=== PATIENT | female | born 1990 | race Caucasian/White ===

== ENCOUNTER 2020-03-01 21:42 | Emergency (ER) | payer OTHER ==
[~2020-03-01] VITALS: Ht 154.9 cm; Wt 102.1 kg
[2020-03-01] MEDS ORDERED: TOPAMAX100 MG PO ×2 (22:01→23:24)
[2020-03-01] MEDS ORDERED: XANAX1 MG PO (22:01)
[2020-03-01] MEDS ORDERED: METHADONE HCL 110 M1 PO (22:03)
[2020-03-01] MEDS ORDERED: LYRICA150 MG PO ×2 (22:03→23:24)
[2020-03-01 22:10] LABS: ABSOLUTE BASOPHILS 0.1 thou/uL (0.0-0.2); ABSOLUTE EOSINOPHILS 0.1 thou/uL (0.0-0.7); ABSOLUTE LYMPHOCYTES 2.4 thou/uL (0.8-5.3); ABSOLUTE MONOCYTES 0.3 thou/uL (0.0-1.2); ABSOLUTE NEUTROPHILS 5.2 thou/uL (1.6-8.1); BASOPHILS 0.7 %; EOSINOPHILS 1.7 %; HEMATOCRIT 43.9 % (37.0-47.0); HEMOGLOBIN 15.5 gm/dL (12.0-15.0); LYMPHOCYTES 29.8 %; MCH 29.5 pg (26.0-34.0); MCHC 35.2 g/dL (28.0-37.0); MCV 83.9 fL (80.0-100.0); MONOCYTES 3.8 %; MPV 9.2 fl. (7.2-11.1); NUCLEATED RBCS 0 /100WBC; PLATELET COUNT* 227 thou/uL (150-400); RBC 5.24 mil/uL (4.20-5.00); RDW-CV 13.9 % (10.5-14.5); WBC 8.1 thou/uL (4.0-11.0)
[2020-03-01 22:19] LABS: PROTIME 10.7 Seconds (9.20-11.50)
[2020-03-01 22:26] LABS: URINE BILIRUBIN NEGATIVE (Negative); URINE BLOOD NEGATIVE (Negative); URINE CLARITY SL CLOUDY; URINE COLOR YELLOW; URINE GLUCOSE-RANDOM NEGATIVE (Negative); URINE KETONES NEGATIVE (Negative); URINE PROTEIN NEGATIVE (Negative)
[2020-03-01 22:27] LABS: URINE LEUKOCYTES-REFLEX 2+ (Negative); URINE NITRITE-REFLEX POSITIVE (Negative)
[2020-03-01 22:27] LABS: CALCIUM 8.9 mg/dL (8.5-10.1); CREATININE 1.1 mg/dL (0.6-1.3); POTASSIUM 3.5 mmol/L (3.5-5.1)
[2020-03-01 22:42] LABS: ALBUMIN 3.7 g/dL (3.4-5.0); TOTAL BILIRUBIN 1.1 mg/dL (<0.1-1.0); TOTAL PROTEIN 7.5 g/dL (6.4-8.2)
[2020-03-01 22:47] LABS: BACTERIA-REFLEX >30 Many /HPF (None Seen); SQUAMOUS >10 Many /LPF (0-3)
[2020-03-01 22:48] LABS: CASTS None Seen /LPF (None Seen); CRYSTALS None Seen /LPF (None Seen); MUCUS None Seen strn/LPF (None Seen); URINE RBC None Seen /HPF (0-2)
[2020-03-01 22:50] LABS: AMP/METHAMP Negative (Negative); BARBITURATES Negative (Negative); BENZODIAZEPINES POSITIVE (Negative); COCAINE Negative (Negative); METHADONE POSITIVE (Negative); OPIATES Negative (Negative); PCP Negative (Negative); THC POSITIVE (Negative)
[2020-03-01] MEDS ORDERED: ZOLOFT100 MG PO (23:24)
[2020-03-01] MEDS ORDERED: LYRICA100 MG PO (23:24)
[2020-03-01] MEDS ORDERED: BACTRIM DS TAB1 EACH PO (23:26)
[2020-03-02 00:04] VITALS: BP 115/81
--- NOTE | 2020-03-02 10:20 | EKG ---
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
== END 2020-03-02 00:05 | disposition home or self-care (01) ==
LOC: M.ERS 21:42
PROVIDERS: Emergency Medicine
DX: N39.0 Urinary tract infection, site not specified (principal); R63.0 Anorexia; R55 Syncope and collapse; G43.909 Migraine, unspecified, not intractable, without status migrainosus; M79.7 Fibromyalgia; F41.9 Anxiety disorder, unspecified; F32.9 Major depressive disorder, single episode, unspecified; Z88.0 Allergy status to penicillin; Z88.8 Allergy status to other drugs, medicaments and biological substances

== ENCOUNTER 2020-03-27 21:26 | Emergency (ER) | payer OTHER ==
[~2020-03-27] VITALS: Ht 157.5 cm; Wt 106.6 kg
[~2020-03-27 21:26] MED LIST: BACTRIM DS TAB1 EACH PO; LYRICA100 MG PO; LYRICA150 MG PO; METHADONE HCL 110 M1 PO; TOPAMAX100 MG PO; XANAX1 MG PO; ZOLOFT100 MG PO
[2020-03-27 21:59] LABS: URINE BILIRUBIN NEGATIVE (Negative); URINE BLOOD TRACE (Negative); URINE CLARITY CLEAR; URINE COLOR YELLOW; URINE GLUCOSE-RANDOM NEGATIVE (Negative); URINE KETONES NEGATIVE (Negative); URINE LEUKOCYTES-REFLEX NEGATIVE (Negative); URINE NITRITE-REFLEX NEGATIVE (Negative); URINE PROTEIN NEGATIVE (Negative); URINE SPECIFIC GRAVITY 1.015 (1.005-1.030); URINE UROBILINOGEN 0.2 E.U./dl (0.2-1.0)
[2020-03-27 22:07] LABS: AMP/METHAMP Negative (Negative); BARBITURATES Negative (Negative); BENZODIAZEPINES POSITIVE (Negative); COCAINE Negative (Negative); METHADONE POSITIVE (Negative); OPIATES Negative (Negative); PCP Negative (Negative); THC POSITIVE (Negative)
[2020-03-27] MEDS ORDERED: CYMBALTA60 MG PO (22:08)
[2020-03-27 22:16] LABS: ABSOLUTE EOSINOPHILS 0.4 thou/uL (0.0-0.7); ABSOLUTE LYMPHOCYTES 3.3 thou/uL (0.8-5.3); ABSOLUTE MONOCYTES 0.5 thou/uL (0.0-1.2); ABSOLUTE NEUTROPHILS 5.5 thou/uL (1.6-8.1); BASOPHILS 0.4 %; EOSINOPHILS 4.6 %; LYMPHOCYTES 33.9 %; MCH 29.5 pg (26.0-34.0); MCV 84.4 fL (80.0-100.0); MONOCYTES 4.7 %; MPV 8.7 fl. (7.2-11.1); NUCLEATED RBCS 0 /100WBC; PLATELET COUNT* 276 thou/uL (150-400); POLYS 56.4 %; RBC 4.74 mil/uL (4.20-5.00); RDW-CV 14.3 % (10.5-14.5); WBC 9.7 thou/uL (4.0-11.0)
[2020-03-27] MEDS ORDERED: SEROQUEL 25 MG25 M1 PO (22:19)
[2020-03-27 22:20] LABS: CALCIUM 8.5 mg/dL (8.5-10.1); CREATININE 0.8 mg/dL (0.6-1.3); POTASSIUM 3.8 mmol/L (3.5-5.1)
[2020-03-27] MEDS ORDERED: DIAZEPAM 10 MG10 M1 PO (22:20)
[2020-03-27] MEDS ORDERED: NEURONTIN 300M300 M2 PO (22:21)
[2020-03-27] MEDS ORDERED: AMBIEN 10 MG TA10 MG PO (22:22)
[2020-03-27] MEDS ORDERED: LYRICA150 MG PO (22:24)
[2020-03-27 22:25] LABS: ALBUMIN 3.3 g/dL (3.4-5.0); TOTAL BILIRUBIN 0.3 mg/dL (<0.1-1.0); TOTAL PROTEIN 7.7 g/dL (6.4-8.2)
[2020-03-27 22:58] LABS: ALCOHOL < 10 mg/dL (<10); SALICYLATE 3.6 mg/dL (2.8-20.0)
[2020-03-27 23:01] LABS: ACETAMINOPHEN < 2 ug/mL (10-30)
[2020-03-29 10:10] VITALS: BP 93/59
== END 2020-03-29 10:10 | disposition still patient (30) ==
LOC: M.ERS 21:26
PROVIDERS: Emergency Medicine
DX: R45.851 Suicidal ideations (principal); F41.9 Anxiety disorder, unspecified; G43.909 Migraine, unspecified, not intractable, without status migrainosus; F32.9 Major depressive disorder, single episode, unspecified; G40.909 Epilepsy, unspecified, not intractable, without status epilepticus; Z88.0 Allergy status to penicillin; Z88.8 Allergy status to other drugs, medicaments and biological substances; Z79.899 Other long term (current) drug therapy

== ENCOUNTER 2020-12-19 16:29 | Emergency (ER) | payer OTHER ==
[~2020-12-19] VITALS: Ht 157.5 cm; Wt 114.8 kg
[~2020-12-19 16:29] MED LIST changes: +AMBIEN 10 MG TA10 MG PO; +CYMBALTA60 MG PO; +DIAZEPAM 10 MG10 M1 PO; +NEURONTIN 300M300 M2 PO; +SEROQUEL 25 MG25 M1 PO
[2020-12-19 17:39] LABS: ABSOLUTE BASOPHILS 0.1 thou/uL (0.0-0.2); ABSOLUTE EOSINOPHILS 0.3 thou/uL (0.0-0.7); ABSOLUTE LYMPHOCYTES 4.7 thou/uL (0.8-5.3); ABSOLUTE MONOCYTES 0.7 thou/uL (0.0-1.2); ABSOLUTE NEUTROPHILS 5.9 thou/uL (1.6-8.1); BASOPHILS 0.5 %; EOSINOPHILS 2.6 %; HEMATOCRIT 42.4 % (37.0-47.0); HEMOGLOBIN 14.4 gm/dL (12.0-15.0); LYMPHOCYTES 40.3 %; MCH 28.3 pg (26.0-34.0); MCHC 33.9 g/dL (28.0-37.0); MCV 83.6 fL (80.0-100.0); MONOCYTES 5.9 %; MPV 8.2 fl. (7.2-11.1); NUCLEATED RBCS 0 /100WBC; PLATELET COUNT* 260 thou/uL (150-400); POLYS 50.7 %; RBC 5.07 mil/uL (4.20-5.00); RDW-CV 13.5 % (10.5-14.5); WBC 11.7 thou/uL (4.0-11.0)
[2020-12-19] MEDS ORDERED: METHADONE10 MG/1 M2 PO (17:39)
[2020-12-19 17:52] LABS: CALCIUM 9.1 mg/dL (8.5-10.1); CREATININE 0.9 mg/dL (0.6-1.3); POTASSIUM 3.7 mmol/L (3.5-5.1)
[2020-12-19 17:57] LABS: ALBUMIN 3.1 g/dL (3.4-5.0); TOTAL BILIRUBIN 0.3 mg/dL (<0.1-1.0); TOTAL PROTEIN 6.8 g/dL (6.4-8.2)
[2020-12-19] MEDS ORDERED: PROMS25 WY RECTAL (18:00)
[2020-12-19] MEDS ORDERED: PHENERGAN 25 MG25 M1 PO (18:00)
[2020-12-19] MEDS ORDERED: VENTOLIN HFA 1818 GM INH (18:00)
[2020-12-19 19:04] VITALS: BP 105/67
--- NOTE | 2020-12-20 09:43 | EKG ---
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1990 Requested By: Berenice Myers Order Number: [id number] MD: Ricky Whitfield Measurements Intervals [place] Rate: 89 P: 40 MN: 142 QRS: 43 QRSD: 94 T: 31 QT: 363 QTc: 442 Interpretive Statements Sinus rhythm Borderline T abnormalities, anterior leads Compared to ECG 03/01/2020 21:47:53 T-wave abnormality now present Electronically Signed On 12-20-2020 9:42:56 PROJECTION TECHNICIAN by Ricky Whitfield [email or web address] <ELECTRONICALLY SIGNED> By: Ricky Whitfield MD, FACC 12/20/20 0942 1734 1734 Ricky Whitfield MD, FAC /EPI
== END 2020-12-19 19:07 | disposition home or self-care (01) ==
LOC: M.ERS 16:29
PROVIDERS: Nurse Practitioner Family
DX: R11.2 Nausea with vomiting, unspecified (principal); Z20.822 Contact with and (suspected) exposure to COVID-19; G43.909 Migraine, unspecified, not intractable, without status migrainosus; M79.7 Fibromyalgia; K21.9 Gastro-esophageal reflux disease without esophagitis; Z87.442 Personal history of urinary calculi; Z90.49 Acquired absence of other specified parts of digestive tract; Z95.5 Presence of coronary angioplasty implant and graft; Z88.6 Allergy status to analgesic agent; Z88.0 Allergy status to penicillin; Z88.8 Allergy status to other drugs, medicaments and biological substances

== ENCOUNTER 2021-03-15 06:17 | Emergency (ER) | payer OTHER, MEDICAID ==
[~2021-03-15] VITALS: Ht 154.9 cm; Wt 115.7 kg
[~2021-03-15 06:17] MED LIST changes: +METHADONE10 MG/1 M2 PO; +PHENERGAN 25 MG25 M1 PO; +PROMS25 WY RECTAL; +VENTOLIN HFA 1818 GM INH; +XANAX 1 MG TABLE1 MG PO
[2021-03-15 06:51] LABS: ABSOLUTE LYMPHOCYTES 2.3 thou/uL (0.8-5.3); ABSOLUTE MONOCYTES 0.4 thou/uL (0.0-1.2); ABSOLUTE NEUTROPHILS 9.1 thou/uL (1.6-8.1); BASOPHILS 0.3 %; HEMATOCRIT 42.8 % (37.0-47.0); HEMOGLOBIN 14.8 gm/dL (12.0-15.0); LYMPHOCYTES 19.3 %; MCH 28.8 pg (26.0-34.0); MCHC 34.5 g/dL (28.0-37.0); MCV 83.5 fL (80.0-100.0); MONOCYTES 3.3 %; MPV 7.9 fl. (7.2-11.1); NUCLEATED RBCS 0 /100WBC; PLATELET COUNT* 338 thou/uL (150-400); POLYS 77.1 %; RBC 5.13 mil/uL (4.20-5.00); RDW-CV 13.5 % (10.5-14.5); WBC 11.8 thou/uL (4.0-11.0)
[2021-03-15 07:00] LABS: CALCIUM 9.2 mg/dL (8.5-10.1); CREATININE 0.8 mg/dL (0.6-1.3)
[2021-03-15 07:04] LABS: ALBUMIN 3.7 g/dL (3.4-5.0); TOTAL BILIRUBIN 0.4 mg/dL (<0.1-1.0); TOTAL PROTEIN 7.8 g/dL (6.4-8.2)
[2021-03-15] MEDS ORDERED: TOPAMAX50 MG PO (07:44)
[2021-03-15] MEDS ORDERED: ZPAK PO (07:44)
[2021-03-15 07:48] VITALS: BP 107/61
--- NOTE | 2021-03-15 09:39 | EKG ---
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
== END 2021-03-15 07:49 | disposition home or self-care (01) ==
LOC: M.ERS 06:17
PROVIDERS: Emergency Medicine
DX: G40.909 Epilepsy, unspecified, not intractable, without status epilepticus (principal); J32.0 Chronic maxillary sinusitis; J32.2 Chronic ethmoidal sinusitis; G43.909 Migraine, unspecified, not intractable, without status migrainosus; F41.9 Anxiety disorder, unspecified; F32.9 Major depressive disorder, single episode, unspecified; K21.9 Gastro-esophageal reflux disease without esophagitis; N18.9 Chronic kidney disease, unspecified; Z90.49 Acquired absence of other specified parts of digestive tract; Z96.0 Presence of urogenital implants; Z79.899 Other long term (current) drug therapy; Z88.0 Allergy status to penicillin; Z88.8 Allergy status to other drugs, medicaments and biological substances

== ENCOUNTER 2021-07-29 10:02 | Emergency (ER) | payer OTHER, MEDICAID ==
[~2021-07-29] VITALS: Ht 157.5 cm; Wt 117.0 kg
[~2021-07-29 10:02] MED LIST changes: +TOPAMAX50 MG PO; +ZPAK PO
[2021-07-29] MEDS ORDERED: QUETIAPINE FUM150 MG PO (10:18)
[2021-07-29 11:28] LABS: URINE BILIRUBIN NEGATIVE (Negative); URINE BLOOD NEGATIVE (Negative); URINE CLARITY CLEAR; URINE COLOR YELLOW; URINE GLUCOSE-RANDOM NEGATIVE (Negative); URINE KETONES NEGATIVE (Negative); URINE LEUKOCYTES-REFLEX NEGATIVE (Negative); URINE NITRITE-REFLEX NEGATIVE (Negative); URINE PROTEIN NEGATIVE (Negative); URINE SPECIFIC GRAVITY >= 1.030 (1.005-1.030); URINE UROBILINOGEN 0.2 E.U./dl (0.2-1.0)
[2021-07-29 12:35] LABS: ABSOLUTE EOSINOPHILS 0.4 thou/uL (0.0-0.7); ABSOLUTE LYMPHOCYTES 3.3 thou/uL (0.8-5.3); ABSOLUTE MONOCYTES 0.6 thou/uL (0.0-1.2); ABSOLUTE NEUTROPHILS 4.9 thou/uL (1.6-8.1); BASOPHILS 0.4 %; EOSINOPHILS 4.3 %; HEMATOCRIT 35.2 % (37.0-47.0); LYMPHOCYTES 35.9 %; MCH 28.5 pg (26.0-34.0); MCV 83.7 fL (80.0-100.0); MONOCYTES 6.2 %; MPV 7.7 fl. (7.2-11.1); NUCLEATED RBCS 0 /100WBC; PLATELET COUNT* 238 thou/uL (150-400); POLYS 53.2 %; RBC 4.21 mil/uL (4.20-5.00); RDW-CV 12.8 % (10.5-14.5); WBC 9.3 thou/uL (4.0-11.0)
[2021-07-29 12:42] LABS: CALCIUM 8.5 mg/dL (8.5-10.1); CREATININE 0.7 mg/dL (0.6-1.3); POTASSIUM 3.8 mmol/L (3.5-5.1)
[2021-07-29 12:46] LABS: TOTAL BILIRUBIN 0.4 mg/dL (<0.1-1.0); TOTAL PROTEIN 6.6 g/dL (6.4-8.2)
[2021-07-29] MEDS ORDERED: BENTYL 10 MG CA10 M1 PO (15:03)
[2021-07-29] MEDS ORDERED: PHENERGAN 25 MG25 M1 PO (15:03)
[2021-07-29 15:14] VITALS: BP 124/72
== END 2021-07-29 15:15 | disposition home or self-care (01) ==
LOC: M.ERS 10:02
PROVIDERS: Emergency Medicine Emergency Medical Services; Nurse Practitioner Family
DX: R10.11 Right upper quadrant pain (principal); Z20.822 Contact with and (suspected) exposure to COVID-19; K21.9 Gastro-esophageal reflux disease without esophagitis; G40.909 Epilepsy, unspecified, not intractable, without status epilepticus; G43.909 Migraine, unspecified, not intractable, without status migrainosus; F41.9 Anxiety disorder, unspecified; F32.9 Major depressive disorder, single episode, unspecified; M79.7 Fibromyalgia; Z87.442 Personal history of urinary calculi; Z90.49 Acquired absence of other specified parts of digestive tract; Z79.899 Other long term (current) drug therapy; Z79.891 Long term (current) use of opiate analgesic; Z88.0 Allergy status to penicillin; Z88.8 Allergy status to other drugs, medicaments and biological substances

== ENCOUNTER 2021-09-06 20:55 | Emergency (ER) | payer OTHER, MEDICAID ==
[~2021-09-06] VITALS: Ht 157.5 cm; Wt 121.6 kg
[~2021-09-06 20:55] MED LIST changes: +BENTYL 10 MG CA10 M1 PO; +QUETIAPINE FUM150 MG PO
[2021-09-06] MEDS ORDERED: METHADONE10 MG/1 M2 PO (21:08)
[2021-09-06 21:46] LABS: ABSOLUTE EOSINOPHILS 0.3 thou/uL (0.0-0.7); ABSOLUTE LYMPHOCYTES 2.9 thou/uL (0.8-5.3); ABSOLUTE MONOCYTES 0.5 thou/uL (0.0-1.2); ABSOLUTE NEUTROPHILS 4.6 thou/uL (1.6-8.1); BASOPHILS 0.4 %; EOSINOPHILS 3.5 %; HEMATOCRIT 39.5 % (37.0-47.0); LYMPHOCYTES 34.5 %; MCH 28.2 pg (26.0-34.0); MCHC 32.9 g/dL (28.0-37.0); MCV 85.5 fL (80.0-100.0); NUCLEATED RBCS 0 /100WBC; PLATELET COUNT* 242 thou/uL (150-400); POLYS 55.6 %; RBC 4.62 mil/uL (4.20-5.00); RDW-CV 13.4 % (10.5-14.5); WBC 8.3 thou/uL (4.0-11.0)
[2021-09-06 22:08] LABS: CALCIUM 8.7 mg/dL (8.5-10.1); CREATININE 0.7 mg/dL (0.6-1.3); POTASSIUM 5.2 mmol/L (3.5-5.1)
[2021-09-06 22:12] LABS: ALBUMIN 3.1 g/dL (3.4-5.0); TOTAL BILIRUBIN 0.5 mg/dL (<0.1-1.0); TOTAL PROTEIN 6.7 g/dL (6.4-8.2)
[2021-09-07 00:01] LABS: INFLUENZA A ANTIGEN Negative (Negative); INFLUENZA B ANTIGEN Negative (Negative)
[2021-09-07 00:48] LABS: URINE BILIRUBIN NEGATIVE (Negative); URINE BLOOD NEGATIVE (Negative); URINE COLOR YELLOW; URINE GLUCOSE-RANDOM NEGATIVE (Negative); URINE KETONES NEGATIVE (Negative); URINE LEUKOCYTES-REFLEX TRACE (Negative); URINE NITRITE-REFLEX NEGATIVE (Negative); URINE PROTEIN NEGATIVE (Negative); URINE SPECIFIC GRAVITY 1.015 (1.005-1.030); URINE UROBILINOGEN 0.2 E.U./dl (0.2-1.0)
[2021-09-07 00:49] LABS: URINE CLARITY SL HAZY
[2021-09-07] MEDS ORDERED: HYDROCODON-ACE1 EAC8 PO ×2 (00:49→01:38)
[2021-09-07] MEDS ORDERED: CEPHALEXIN500 MG PO (00:49)
[2021-09-07 00:59] LABS: AMP/METHAMP Negative (Negative); BARBITURATES Negative (Negative); BENZODIAZEPINES POSITIVE (Negative); COCAINE Negative (Negative); METHADONE POSITIVE (Negative); OPIATES Negative (Negative); PCP Negative (Negative); THC Negative (Negative)
[2021-09-07 01:06] LABS: CASTS None Seen /LPF (None Seen); CRYSTALS None Seen /LPF (None Seen); MUCUS 0-3 Light strn/LPF (None Seen); SQUAMOUS >10 Many /LPF (0-3); TRANSITIONAL EPITHEL CELL 0-3 Few /LPF (None Seen); URINE RBC 0-2 Rare /HPF (0-2); URINE WBC-REFLEX 6-15 Few /HPF (0-5)
[2021-09-07] MEDS ORDERED: COMPAZINE10 M2 PO (01:41)
[2021-09-07 01:42] VITALS: BP 110/70
--- NOTE | 2021-09-07 14:35 | EKG ---
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
== END 2021-09-07 01:44 | disposition home or self-care (01) ==
LOC: M.ERS 20:55
PROVIDERS: Emergency Medicine; Nurse Practitioner Family
DX: K08.89 Other specified disorders of teeth and supporting structures (principal); Z20.822 Contact with and (suspected) exposure to COVID-19; R56.9 Unspecified convulsions; G43.909 Migraine, unspecified, not intractable, without status migrainosus; F41.9 Anxiety disorder, unspecified; F32.9 Major depressive disorder, single episode, unspecified; K21.9 Gastro-esophageal reflux disease without esophagitis; F17.210 Nicotine dependence, cigarettes, uncomplicated; Z90.49 Acquired absence of other specified parts of digestive tract; Z79.899 Other long term (current) drug therapy; Z88.0 Allergy status to penicillin; Z88.1 Allergy status to other antibiotic agents

== ENCOUNTER 2021-09-21 16:48 | Emergency (ER) | payer OTHER, MEDICAID ==
[~2021-09-21] VITALS: Ht 160 cm; Wt 117.0 kg
[~2021-09-21 16:48] MED LIST changes: +CEPHALEXIN500 MG PO; +COMPAZINE10 M2 PO; +HYDROCODON-ACE1 EAC8 PO
[2021-09-21] MEDS ORDERED: TOPAMAX50 MG PO (16:56)
[2021-09-21 16:58] VITALS: BP 96/69
[2021-09-21] MEDS ORDERED: PHENERGAN 25 MG25 M1 PO (17:38)
== END 2021-09-21 17:15 | disposition home or self-care (01) ==
LOC: M.ERS 16:48
DX: G40.909 Epilepsy, unspecified, not intractable, without status epilepticus (principal); G43.909 Migraine, unspecified, not intractable, without status migrainosus; K21.9 Gastro-esophageal reflux disease without esophagitis; F17.210 Nicotine dependence, cigarettes, uncomplicated; M79.7 Fibromyalgia; Z88.0 Allergy status to penicillin; Z88.8 Allergy status to other drugs, medicaments and biological substances; Z88.6 Allergy status to analgesic agent; Z79.899 Other long term (current) drug therapy; Z90.49 Acquired absence of other specified parts of digestive tract